=== PATIENT | male | born 1955 | race Caucasian/White ===

== ENCOUNTER 2021-12-31 15:05 | Emergency (ER) | payer OTHER ==
[~2021-12-31] VITALS: Ht 167.6 cm; Wt 77.1 kg
--- NOTE | 2021-12-31 16:30 | NUR ---
Urinary retention - x 4 days, worst since last night- sent by Dr. Washington for Julien insertion. The patient is alert and oriented x4. Will continue to monitor the patient.
--- NOTE | 2021-12-31 16:32 | NUR ---
Julien inserted at bedside - no complication
--- NOTE | 2021-12-31 16:43 | NUR ---
urine sent to lab
--- NOTE | 2021-12-31 16:43 | NUR ---
Dr. Burton at bedside.
[2021-12-31 16:46] LABS: BILIRUBIN,URINE NEGATIVE (NEGATIVE); COLOR,URINE YELLOW (YELLOW); LEUKOCYTE ESTERASE ,URINE NEGATIVE (NEGATIVE); NITRITE, URINE NEGATIVE (NEGATIVE); PROTEIN,URINE NEGATIVE (NEGATIVE); UGLUCOSE NEGATIVE (NEGATIVE); UROBILINOGEN,URINE 0.2 EU/dL (0.2)
--- NOTE | 2021-12-31 17:05 | NUR ---
Patient discharged to home in stable condition. Written and verbal after care instructions given. Patient verbalizes understanding of instruction.
[2021-12-31 17:06] VITALS: BP 147/94
== END 2021-12-31 17:06 | disposition home or self-care (01) ==
LOC: ER 15:17
DX: N99.89 Other postprocedural complications and disorders of genitourinary system (principal); I10 Essential (primary) hypertension; J45.909 Unspecified asthma, uncomplicated; Z90.89 Acquired absence of other organs